=== PATIENT | female | born 1960 | race Caucasian/White ===

== ENCOUNTER 2018-07-02 06:24 | Day surgery (SDC) | payer OTHER, SELFPAY ==
[2018-06-10 13:16] VITALS: BMI 29.2
[2018-07-02] VITALS (7 sets, daily range): BP systolic 110–137; BP diastolic 68–84; PULSE 61–98; RESP 16–18; TEMP 36.1–36.3; O2SAT 94–100; BMI 30.2
--- NOTE | 2018-07-02 06:37 | EKG12_ITS ---
Test Reason : PRE OP Blood Pressure : / mmHG Vent. Rate : 090 BPM Atrial Rate : 090 BPM P-R Int : 154 ms QRS Dur : 080 ms QT Int : 352 ms P-R-T Axes : 039 022 056 degrees QTc Int : 430 ms Normal sinus rhythm Nonspecific ST abnormality Abnormal ECG No previous ECGs available Confirmed by ANY DAVIS ([id number]), editor trade journal THA AMADOR ([id number]) on 07/07/2018 2:52:25 PM Referred By: Kurtis Mcbride Confirmed By:ANY DAVIS
--- NOTE | 2018-07-02 08:30 | RAD_ITS ---
STUDY: INTRAOPERATIVE CHOLANGIOGRAM. REASON FOR EXAM: Female, 58 years old. Laparoscopic cholecystectomy. FLUOROSCOPY TIME (if supplied): (15 seconds.) minutes/seconds TECHNIQUE: And intraoperative cholangiogram was performed by the surgeon. Imaging was submitted. COMPARISON: None. FINDINGS: The common bile duct is not dilated. There is free flow of contrast into the duodenum. No intraluminal filling defect is seen. RAD/Cholangiogram/ O R,Initial IMPRESSION: Unremarkable intraoperative cholangiogram. Electronically Signed: Beck Augustin MD at 10:48 EST Tel [phone], Service support ,
--- NOTE | 2018-07-02 08:30 | GALL_PTH ---
PATIENT: ADIS BECERRA LOC: [facility] [place] U#:[id number] AGE/SX: 58/F ROOM: RE07/02/[address]: Dr. Kurtis Mcbride MD : [id number] BED: DIS: 07/02/2018 SPEC #: [id number] RECD: 07/02/18 10:26 STATUS: RUI REDaryl #: [id number] EFFIE: 07/02/18 08:[address]: Kurtis Mcbride DEPT: SURGICAL PATHOLOGY RECD BY: Joselin Moran ENTERED: 07/05/18 08:29 SP TYPE: GRANT HERNÁNDEZ DR: Tali Jones, DANIEL Tissues: Gallbladder, NOS Procedures: Surgery Specimen Level III HEADER OPERATION: Laparoscopic cholecystectomy with IOC PRE-OP DIAGNOSIS: Biliary colic TISSUE SUBMITTED: Gallbladder and contents MICROSCOPIC DIAGNOSIS Gallbladder and contents: Chronic cholecystitis, cholelithiasis and focal cholesterolosis. SJ:jim 07/05/18 MICROSCOPIC DESCRIPTION Slides are reviewed. GROSS DESCRIPTION Received is one container labeled with the patient's name and designated gallbladder. The specimen consists of a gallbladder measuring 12 cm in length and up to 3 cm in diameter. The external surface is pink-kohler, smooth and glistening for the most part. Focally it is granular, hemorrhagic and contains cautery artifact. The gallbladder contains green-yellow mucoid bile and multiple brown stones measuring in aggregate 4 x 3.5 x 2 cm and 0.3 to 1.5 cm in greatest dimension. The mucosa is bile-stained and without any mass lesions. The gallbladder wall measures up to 0.2 cm in thickness. Rn Radiology sections from the gallbladder and the cystic duct are submitted in one cassette. / SJ:jim 07/02/18 TC:4 CPT: 61192
[2018-07-02] MEDS: Bupiv/Epi 0.5% Mpf 30 ML Vial (09:35)
--- NOTE | 2018-07-02 09:45 | PCM.OPRPT ---
Problem List (1) Cholelithiasis Status: Acute Qualifiers: Cholelithiasis location: gallbladder Cholecystitis presence: without cholecystitis Biliary obstruction: without biliary obstruction Qualified Code(s): K80.20 - Calculus of gallbladder without cholecystitis without obstruction Report of Operation Date of Procedure: 07/02/18 Pre-Operative Diagnosis: Biliary colic with cholelithiasis and history of cholecystitis Post-Operative Diagnosis: Same Surgery/Procedure Performed:: Laparoscopic cholecystectomy with cholangiogram Specimen's removed: Gallbladder and contents Description of Procedure: After obtaining informed consent patient was brought back to the operating room. General anesthesia was induced. The abdomen was prepped and draped in usual sterile fashion. A small midline incision was made superior to the umbilicus and deepened to the level of fascia. The fascia was elevated and incised. Next the peritoneum was elevated and incised in the same fashion. Finger sweep was performed and the Lopez trocar was placed into the abdomen. The balloon was inflated. The abdomen was inflated to 15 mmHg. Next a camera was introduced into the abdomen and the abdomen was inspected. Next under direct visualization three 5-mm ports were placed one subxiphoid and 2 subcostal. Next the gallbladder was elevated and retracted toward the right shoulder. The peritoneum was stripped from the gallbladder. The infundibulum was located and retracted laterally. Next the triangle of Calot was dissected and the cystic duct and cystic artery were identified. Cholangiograms were performed. The Barnes catheter was used to clamp across the infundibulum and the needle was inserted into the gallbladder. Under fluoroscopy contrast was instilled into the gallbladder and the common duct, cystic duct as well as proximal hepatic ducts were identified. There was good filling of the duodenum. There were no filling defects noted in the common bile duct. The clamp was removed as well as the needle and the infundibulum was grasped once more. Three hemolock clips were placed across the cystic duct. The cystic duct was then divided leaving 2 clips on the stump. The cystic artery was clipped and divided in the same fashion. The hook cautery was then used to take the gallbladder off of the gallbladder bed. Hemostasis was obtained. Gallbladder fossa was irrigated and no active bleeding or bile leakage was noted. Next the camera switched to a 5 mm camera and introduced in the subxiphoid port. An Endopouch bag was placed through the umbilical port and the gallbladder was placed into it. The gallbladder was then removed through the umbilical incision. The camera was then reinserted through the umbilical port. The gallbladder fossa was inspected once more and noted to be hemostatic with no leaking bile. The abdomen was suctioned dry the 5 mm ports were removed under direct visualization. The umbilical port was then removed and the air was removed from the abdomen. Next using an 0 Vicryl suture the umbilical fascia was closed in a [id number] fashion. The umbilical port site was irrigated local anesthetic was administered to all the incisions. All the incisions were closed subcuticular 4-0 Monocryl sutures followed by Steri-Strips and dressings. The patient was awoken and taken to PACU in stable condition. - Admit VTE Documentation VTE Present on Admission: No VTE Mechan Device Prophylaxis: SCD's
--- NOTE | 2018-07-02 09:51 | DCINST_ITS ---
Discharge Diet: Light diet - advance as tolerated Discharge Activity: Return to Normal Activity, May Not Drive - for 2-3 days or while taking narcotic pain medicataions., - - Do not drive, work heavy equipment or sign legal documents for 24 hours. May shower in (days): 1 - with the bandage in place. Lifting Restrictions: 20 lbs for 2 weeks Additional Activity Instructions:: Pain medication may cause nausea. You should typically eat light foods as you take your pain medications. Pain medication may also cause constipation. If this is a problem for you, please discuss with your doctor. Call your doctor if your incision/area has: Continuous Slow Oozing, Sudden Increased Bleeding, Increased Pain/ Swelling, Increased Redness, Foul Smelling Discharge, Fever of 101 or Higher Call your doctor if you observe: Fever of 101 or Higher Suture Line Care: Avoid Pulling/Pushing, Avoid Pinching/Bending Additional Dressing/Incision Instructions:: Leave operative bandaids on for 2 days. When you remove dressing, leave Steri-Strips on until your follow-up appointment, or until the Steri-Strips fall off on their own. Allergies/Adverse Reactions: Allergies No Known Allergies Allergy (Verified 06/25/18 14:45) Medications to take at Discharge loratadine 10 mg tablet 10 mg PO DAILY PRN 06/10/18 Oxycodone HCl/Acetaminophen [Percocet 5/325] 1 - 2 tablet PO Q4H PRN PRN 7 Days #40 tablet 07/02/18 The following prescriptions were given: Oxycodone HCl/Acetaminophen [Percocet 5/325] 1 - 2 tablet PO Q4H PRN PRN 7 Days #40 tablet PRN Reason: Pain Primary Care Physician: Tali Jones NP-C [Primary Care Provider] - Test Results: Test results from this visit will be discussed in further detail at your follow- up appointment, if applicable. Please Follow Up With: Kurtis Mcbride MD When: Please call to schedule 2 week follow up appointment. [phone]
== END 2018-07-02 12:51 | disposition home or self-care (01) ==
LOC: SDC 06:26 → AC 06:27
PROVIDERS: Family Provider Nurse Practitioner Family; PCP Nurse Practitioner Family; Referring Provider Surgery; Visit Provider Surgery
PROC: (CPT 47610; principal; 2018-07-02 08:20)
DX: K80.10 Calculus of gallbladder with chronic cholecystitis without obstruction (principal)
CPT/HCPCS: 00790; 47563; 74300; 76000; 88304; 93005; J7120; J2405

== ENCOUNTER → 2019-03-31 08:34 | Outpatient (CLI) | payer OTHER, SELFPAY ==
[2018-07-02 07:07] VITALS: BMI 30.2
[2019-03-31 08:06] VITALS: BMI 30.2
--- NOTE | 2019-03-31 08:48 | BI_ITS ---
MAMMOGRAPHY - BILATERAL SCREENING REASON FOR EXAM: Female, 58 years old. Routine annual screening examination. PERTINENT HISTORY: Non-contributory. Remote needle biopsy. TECHNIQUE: Digital bilateral breast wen (3D mammographic acquisition) in the CC and MLO projections. 2-D mediolateral oblique (MLO) and craniocaudad (CC) views of both breasts were obtained. CAD: Full Field Digital Mammography with Computer Added Detection was performed. COMPARISON: Comparison is made with prior outside examination of November 16, 2017. FINDINGS: Breast Composition: The breasts are heterogeneously dense, which may obscure small masses. There are no dominant masses or suspicious calcifications. Stable appearance of the bilateral small axillary lymph nodes. No other significant abnormalities are identified. There has been no significant change since the prior study. BI/SCREEN MAMM (CAD) W/WEN BILAT IMPRESSION: Stable bilateral screening mammogram. Yearly follow-up mammogram recommended. (A) ASSESSMENT CATEGORY: BIRADS Category 1: Negative. A letter regarding these results will be sent to the patient by the facility within 30 days. Approximately 10% of breast cancers are not detected by mammography. A normal mammogram should not delay biopsy of a clinically suspicious abnormality. [id number] Electronically Signed: Beck Augustin, at 10:26 EDT , Service support ,
== END ==
PROVIDERS: Family Provider Nurse Practitioner Family; PCP Nurse Practitioner Family; Referring Provider Nurse Practitioner Women's Health; Visit Provider Nurse Practitioner Women's Health
DX: Z12.31 Encounter for screening mammogram for malignant neoplasm of breast (principal)
CPT/HCPCS: 77063; 77067

== ENCOUNTER → 2020-05-17 07:16 | Outpatient (CLI) | payer OTHER, SELFPAY ==
[2020-04-10 10:30] VITALS: BMI 30.2
--- NOTE | 2020-05-17 07:17 | BI_ITS ---
MAMMOGRAPHY - BILATERAL SCREENING REASON FOR EXAM: Female, 60 years old. Routine annual screening examination. PERTINENT HISTORY: Non-contributory. TECHNIQUE: Digital bilateral breast wen (3D mammographic acquisition) in the CC and MLO projections. 2-D mediolateral oblique (MLO) and craniocaudad (CC) views of both breasts were obtained. CAD: Full Field Digital Mammography with Computer Added Detection was performed. COMPARISON: Comparison is made with prior study dated 03/31/2019. FINDINGS: Breast Composition: The breasts are heterogeneously dense, which may obscure small masses. There are no dominant masses or suspicious calcifications. Stable benign appearing bilateral axillary lymph nodes. No other significant abnormalities are identified. There has been no significant change since the prior study. BI/SCREEN MAMM (CAD) W/WEN BILAT IMPRESSION: Stable bilateral screening mammogram. Yearly follow-up mammogram recommended. (A) ASSESSMENT CATEGORY: BIRADS Category 2: Benign. A letter regarding these results will be sent to the patient by the facility within 30 days. Approximately 10% of breast cancers are not detected by mammography. A normal mammogram should not delay biopsy of a clinically suspicious abnormality. [id number] Electronically Signed: Beck Augustin, at 8:29 EST , Service support ,
== END ==
PROVIDERS: PCP Nurse Practitioner Family; Referring Provider Obstetrics & Gynecology; Visit Provider Obstetrics & Gynecology
DX: Z12.31 Encounter for screening mammogram for malignant neoplasm of breast (principal)
CPT/HCPCS: 77063; 77067

== ENCOUNTER → 2021-05-20 13:33 | Outpatient (CLI) | payer OTHER, SELFPAY ==
--- NOTE | 2021-05-20 13:36 | BI_ITS ---
MAMMOGRAPHY - BILATERAL SCREENING REASON FOR EXAM: Female, 61 years old. Routine annual screening examination. PERTINENT HISTORY: Non-contributory. TECHNIQUE: Digital bilateral breast wen (3D mammographic acquisition) in the CC and MLO projections. 2-D mediolateral oblique (MLO) and craniocaudad (CC) views of both breasts were obtained. CAD: Full Field Digital Mammography with Computer Added Detection was performed. COMPARISON: Comparison is made with prior study dated 05/17/2020 and 03/31/2019. FINDINGS: Breast Composition: The breasts are heterogeneously dense, which may obscure small masses. There are no dominant masses or suspicious calcifications. Stable small benign-appearing bilateral axillary lymph nodes. No other significant abnormalities are identified. There has been no significant change since the prior study. BI/SCRN MAMM (CAD)W/WEN BILAT IMPRESSION: Stable bilateral screening mammogram. Yearly follow-up mammogram recommended. (A) ASSESSMENT CATEGORY: BIRADS Category 2: Benign. A letter regarding these results will be sent to the patient by the facility within 30 days. Approximately 10% of breast cancers are not detected by mammography. A normal mammogram should not delay biopsy of a clinically suspicious abnormality. [id number] Electronically Signed: Beck Augustin MD at 14:29 EST , Service support ,
== END ==
PROVIDERS: PCP Family Medicine; Referring Provider Nurse Practitioner Women's Health; Visit Provider Nurse Practitioner Women's Health
DX: Z12.31 Encounter for screening mammogram for malignant neoplasm of breast (principal)
CPT/HCPCS: 77063; 77067

== ENCOUNTER → 2022-01-08 | Outpatient (CLI) | payer OTHER, SELFPAY ==
[2022-01-08 17:47] LABS: Absolute Lymphocyte Count 1.17 X10^3/uL (0.83-4.51); Absolute Neutrophil Count 2.9 X10^3/uL (2.0-7.7); Basophil# 0.04 X10^3/uL; Basophil% 0.9 % (0-1); Eosinophil# 0.06 X10^3/uL; Eosinophils% 1.3 % (0-5); Hematocrit 37.7 % (37-47); Lymphocyte # 1.17 X10^3/ul (0.83-4.51); Lymphocyte % 25.3 % (19-41); Mean Corp Hgb Conc 31.8 g/dL (32-36); Mean Corpuscular Volume 94.3 fL (81-99); Mean Platelet Vol. 11.3 fl (6.2-12.0); Monocyte# 0.42 X10^3/uL; Monocyte% 9.1 % (0-10); NRBC Flagged by Analyzer 0 % (0-5); Neutrophil # 2.93 X10^3/uL (2.7-7.7); Neutrophil % 63.2 % (47-70); Platelet Count 183 K/mm3 (150-450); RBC Distribution Width CV 13.8 % (11.6-14.6); RBC Distribution Width SD 48.1 fl (35.1-43.9); White Blood Count 4.6 K/mm3 (4.4-11.0)
[2022-01-08 18:15] LABS: Hemoglobin A1c 5.7 % (3.8-5.6)
[2022-01-08 18:50] LABS: ALB/GLOB Ratio 1.1 RATIO (0.9-2.4); AST(SGOT) 15 U/L (15-37); Alanine Aminotransfer ALT/SGPT 14 U/L (13-56); Albumin, Serum 3.6 g/dL (3.2-5.0); Alkaline Phosphatase 76 U/L (45-117); Anion Gap 10 (5-15); BUN 15 mg/dL (7-18); Calcium,Total 8.9 mg/dL (8.5-10.1); Chloride 104 mmol/L (98-107); Cholesterol 178 mg/dL (200); Creatinine, Serum 0.79 mg/dL (0.55-1.02); EST Glomerular Filtration Rate 79 mL/min (>60); Est Glom Filt Rate - Afr Amer 95 mL/min (>60); Globulin 3.4 g/dL (2.2-4.2); Glucose 89 mg/dL (74-106); High Density Lipoprotein 65 mg/dL; Potassium 3.5 mmol/L (3.5-5.1); Sodium Level 140 mmol/L (136-145); Thyroid Stim Hormone (TSH) 0.98 uIU/mL (0.358-3.74)
[2022-01-09 07:30] LABS: Triglycerides 81 mg/dL; Very Low Density Lipoprotein 16 mg/dL (5-40)
== END | disposition home or self-care (01) ==
LOC: MFPLAB 15:17
PROVIDERS: PCP Family Medicine; Visit Provider Family Medicine
DX: Z00.00 Encounter for general adult medical examination without abnormal findings (principal); Z13.0 Encounter for screening for diseases of the blood and blood-forming organs and certain disorders involving the immune mechanism; Z13.1 Encounter for screening for diabetes mellitus; Z13.220 Encounter for screening for lipoid disorders; Z13.228 Encounter for screening for other metabolic disorders
CPT/HCPCS: 36415; 80053; 80061; 83036; 84443; 85025

== ENCOUNTER → 2022-05-16 | Outpatient (CLI) | payer OTHER, SELFPAY ==
--- NOTE | 2022-05-16 10:23 | BI_ITS ---
MAMMOGRAPHY - BILATERAL SCREENING REASON FOR EXAM: Female, 62 years old. Routine annual screening examination. PERTINENT HISTORY: Non-contributory. TECHNIQUE: Digital bilateral breast wen (3D mammographic acquisition) in the CC and MLO projections. 2-D mediolateral oblique (MLO) and craniocaudad (CC) views of both breasts were obtained. CAD: Full Field Digital Mammography with Computer Added Detection was performed. COMPARISON: Comparison is made with prior study dated 05/20/2021 and 05/17/2020. FINDINGS: Breast Composition: The breasts are heterogeneously dense, which may obscure small masses. There are no dominant masses or suspicious calcifications. Stable small benign appearing bilateral axillary lymph nodes. No other significant abnormalities are identified. There has been no significant change since the prior study. BI/SCRN MAMM (CAD)W/WEN BILAT IMPRESSION: Stable bilateral screening mammogram. Yearly follow-up mammogram recommended. (A) ASSESSMENT CATEGORY: BIRADS Category 2: Benign. A letter regarding these results will be sent to the patient by the facility within 30 days. Approximately 10% of breast cancers are not detected by mammography. A normal mammogram should not delay biopsy of a clinically suspicious abnormality. [id number] Electronically Signed: Beck Augustin MD at 12:23 EDT ,
== END | disposition home or self-care (01) ==
PROVIDERS: PCP Family Medicine; Referring Provider Nurse Practitioner Women's Health; Visit Provider Nurse Practitioner Women's Health
DX: Z12.31 Encounter for screening mammogram for malignant neoplasm of breast (principal)
CPT/HCPCS: 77063; 77067

== ENCOUNTER → 2023-05-25 | Outpatient (CLI) | payer OTHER, SELFPAY ==
--- NOTE | 2023-05-25 15:36 | BI_ITS ---
MAMMOGRAPHY - BILATERAL SCREENING REASON FOR EXAM: Female, 63 years old. Routine annual screening examination. PERTINENT HISTORY: Non-contributory. History of prior breast aspiration. TECHNIQUE: Digital bilateral breast wen (3D mammographic acquisition) in the CC and MLO projections. 2-D mediolateral oblique (MLO) and craniocaudad (CC) views of both breasts were obtained. CAD: Full Field Digital Mammography with Computer Added Detection was performed. COMPARISON: Comparison is made with prior study dated May 16, 2022 and May 20, 2021. FINDINGS: Breast Composition: The breasts are heterogeneously dense, which may obscure small masses. There are no dominant masses or suspicious calcifications. Stable small benign-appearing bilateral axillary lymph nodes. No other significant abnormalities are identified. There has been no significant change since the prior study. BI/SCRN MAMM (CAD)W/WEN BILAT IMPRESSION: Stable bilateral screening mammogram. Yearly follow-up mammogram recommended. (A) ASSESSMENT CATEGORY: BIRADS Category 2: Benign. A letter regarding these results will be sent to the patient by the facility within 30 days. Approximately 10% of breast cancers are not detected by mammography. A normal mammogram should not delay biopsy of a clinically suspicious abnormality. [id number] Electronically Signed: Beck Augustin MD at 9:39 EST ,
== END | disposition home or self-care (01) ==
LOC: OPBI 15:35
PROVIDERS: PCP Family Medicine; Referring Provider Obstetrics & Gynecology; Visit Provider Obstetrics & Gynecology
DX: Z12.31 Encounter for screening mammogram for malignant neoplasm of breast (principal)
CPT/HCPCS: 77063; 77067

== ENCOUNTER → 2024-03-01 | Outpatient (CLI) | payer OTHER, SELFPAY ==
[2024-03-01 12:48] LABS: Absolute Lymphocyte Count 0.86 X10^3/uL (0.83-4.51); Absolute Neutrophil Count 2.6 X10^3/uL (2.0-7.7); Basophil# 0.04 X10^3/uL; Eosinophil# 0.13 X10^3/uL; Eosinophils% 3.3 % (0-5); Hemoglobin 12.2 g/dL (12.0-15.0); Lymphocyte # 0.86 X10^3/ul (0.83-4.51); Lymphocyte % 21.6 % (19-41); Mean Corpuscular Hgb 30.4 pg (27.0-32.0); Mean Corpuscular Volume 92.3 fL (81-99); Mean Platelet Vol. 11.2 fl (6.2-12.0); Monocyte# 0.33 X10^3/uL; Monocyte% 8.3 % (0-10); NRBC Flagged by Analyzer 0 % (0-5); Neutrophil # 2.61 X10^3/uL (2.7-7.7); Neutrophil % 65.5 % (47-70); Platelet Count 174 K/mm3 (150-450); RBC Distribution Width CV 13.2 % (11.6-14.6); RBC Distribution Width SD 44.5 fl (35.1-43.9); Red Blood Count 4.01 M/mm3 (4.2-5.4)
[2024-03-01 13:03] LABS: Vitamin B12 308 pg/mL (211-911); Vitamin D,25 Hydroxy 31.4 ng/mL
[2024-03-01 13:56] LABS: ALB/GLOB Ratio 1.1 RATIO (0.9-2.4); AST(SGOT) 15 U/L (15-37); Alanine Aminotransfer ALT/SGPT 12 U/L (13-56); Albumin, Serum 3.5 g/dL (3.2-5.0); Alkaline Phosphatase 76 U/L (45-117); Anion Gap 6 (5-15); BUN 7 mg/dL (7-18); BUN/Creat Ratio 9.7 RATIO (10-20); Calcium,Total 9.4 mg/dL (8.5-10.1); Chloride 109 mmol/L (98-107); Cholesterol 176 mg/dL (200); Creatinine, Serum 0.72 mg/dL (0.55-1.02); EST Glomerular Filtration Rate 87 mL/min (>60); Est Glom Filt Rate - Afr Amer 105 mL/min (>60); Globulin 3.3 g/dL (2.2-4.2); Glucose 87 mg/dL (74-106); High Density Lipoprotein 62 mg/dL; Potassium 3.9 mmol/L (3.5-5.1); Protein, Total 6.8 g/dL (6.4-8.2); Sodium Level 140 mmol/L (136-145); Thyroid Stim Hormone (TSH) 0.711 uIU/mL (0.358-3.740); Triglycerides 90 mg/dL; Very Low Density Lipoprotein 18 mg/dL (5-40)
[2024-03-01 14:01] LABS: Hemoglobin A1c 5.3 % (3.8-5.6)
== END | disposition home or self-care (01) ==
LOC: VSLAB 08:41
PROVIDERS: PCP Nurse Practitioner Family; Visit Provider Nurse Practitioner Family
DX: R73.03 Prediabetes (principal); E66.9 Obesity, unspecified
CPT/HCPCS: 36415; 80053; 80061; 82306; 82607; 83036; 84443; 85025

== ENCOUNTER → 2024-07-05 | Outpatient (CLI) | payer OTHER, SELFPAY ==
--- NOTE | 2024-07-05 12:20 | BI_ITS ---
MAMMOGRAPHY - BILATERAL SCREENING 3-D TOMOSYNTHESIS REASON FOR EXAM: Female, 64 years old. screening mammogram PERTINENT HISTORY: No significant family history. TECHNIQUE: 2-D mammograms and 3-D Tomosynthesis of the breast (s) were performed. CAD was performed. COMPARISON: 05/25/2023 FINDINGS: The breast composition is heterogeneously dense that can obscure small breast masses. Scattered benign calcifications are seen. No dense spiculated masses or suspicious microcalcifications are identified. No architectural distortion is identified. There is no skin thickening or retraction. There has been no significant change since the prior study. BI/SCRN MAMM (CAD)W/WEN BILAT IMPRESSION: No mammographic signs of malignancy. Routine yearly mammograms recommended. ASSESSMENT CATEGORY: BIRADS Category 1: Negative. A letter regarding these results will be sent to the patient by the facility within 30 days. FOLLOW UP RECOMMENDATION: Yearly follow up mammogram recommended. (A) Approximately 10% of breast cancers are not detected by mammography. A normal mammogram should not delay biopsy of a clinically suspicious abnormality. Electronically Signed: Odilon Saunders MD at 15:47 EST ,
== END | disposition home or self-care (01) ==
LOC: OPBI 12:20
PROVIDERS: PCP Nurse Practitioner Family; Referring Provider Nurse Practitioner Family; Visit Provider Nurse Practitioner Family
DX: Z12.31 Encounter for screening mammogram for malignant neoplasm of breast (principal)
CPT/HCPCS: 77063; 77067

== ENCOUNTER → 2025-07-11 | Outpatient (CLI) | payer OTHER, SELFPAY ==
--- NOTE | 2025-07-11 07:15 | BI_ITS ---
EXAM: SCRN MAMM (CAD)W/WEN BILAT DATE: 07/11/2025 CLINICAL HISTORY: F, Age 65 y/o , SCREEN FOR BREAST CANCER Routine screening TECHNIQUE: Procedure Code: [id number] Modality: MG Procedure: SCRN MAMM (CAD)W/WEN BILAT COMPARISON: Prior exam(s) dated 07/05/2024 FINDINGS: TISSUE DENSITY: There are scattered areas of fibroglandular density. Bilateral Breast Mammographic Findings: No significant masses, calcifications or other abnormalities are identified. Stable scattered punctate and vascular calcifications. No interval change BI/SCRN MAMM (CAD)W/WEN BILAT IMPRESSION: Stable screening mammogram, no suspicious findings OVERALL FINAL ASSESSMENT BI-RADS 2: BENIGN RECOMMENDATION: Routine annual follow-up in 1 Year Additional Recommendation none A letter with findings and recommendations will be mailed to the patient. Reading Location: [id number]
--- OUTSIDE RECORDS SUMMARY | 2025-07-11 07:22 | XMS RPT_ITS | CCD ---
Author Organization [facility] Care Team Providers Care Aviation Project Manager Name Role Phone Abdelrahman Hopkins Primary Care Provider UnavailAbdelrahman Britt Referring Provider Unavailable MIKHAIL Rapp Attending Provider Abdelrahman Hopkins Primary Care Provider UnavailAbdelrahman Britt Referring Provider Unavailable Dr. Alessia Chen Attending Provider [phone] DO Krista Alba Primary Care Provider DO Krista Alba Referring Provider [phone] Dr. Alessia Chen Attending Provider Sobia Rahman Attending Unavailable Sobia Rahman Referring Unavailable Cesar, July Primary Care Unavailable Cesar July Primary Care Unavailable July Guerrero Attending Unavailable Cesar July Primary Care Unavailable Cesar July Attending Unavailable Cesar, July Referring Unavailable Sobia Rahman Attending Unavailable Cesar July Primary Care Unavailable Medications Current Medications Medication Drug Class(es) Dates Sig (Normalized) Sig (Original) citalopram 20 mg oral tablet (9 sources) Serotonin Reuptake Inhibitor Start: 05-20-2021 End: 05-25-2023 take 1 tablet by mouth once daily Citalopram (Celexa) 20 mg tablet Active 20 MG PO DAILY May 25, 2023 3:15pm fexofenadine hydrochloride 180 mg oral tablet (1 source) Histamine-1 Receptor Antagonist Start: 05-25-2023 take 1 tablet by mouth once daily Fexofenadine (Jody Allergy) 180 mg tablet Active 180 MG PO DAILY May 25, 2023 12:00am Completed/Discontinued Medications Medication Drug Class(es) Dates Sig (Normalized) Sig (Original) acetaminophen 325 mg / oxyCODONE hydrochloride 5 mg oral tablet (3 sources) Opioid Agonist Start: 07-02-2018 End: 07-09-2018 take 1 tablet by mouth every four hours as needed Oxycodone-Acetamin ophen Discontinued 1 - 2 TABLET PO EVERY 4 HOURS NEEDED 40 7 July 02, 2018 12:00am July 09, 2018 12:08am loratadine 10 mg oral tablet (3 sources) Start: 06-10-2018 End: 05-25-2023 take 1 tablet by mouth once daily Loratadine (Claritin) 10 mg tablet Discontinued 10 MG PO DAILY June 10, 2018 12:00am May 25, 2023 3:07pm valACYclovir 1000 mg oral tablet (3 sources) Herpesvirus Nucleoside Analog DNA Polymerase Inhibitor, Herpes Simplex Virus Nucleoside Analog DNA Polymerase Inhibitor, Herpes Zoster Virus Nucleoside Analog DNA Polymerase Inhibitor Start: 12-11-2021 End: 05-16-2022 Valacyclovir (Valtrex) 1 gram tablet Discontinued 1000 MG PO THREE TIMES A DAY December 10, 2021 11:00pm May 16, 2022 8:37am Problems Active Problems Problem Classification Problem Date Documented Date Episodic/Chronic Anxiety disorders (3 sources) Anxiety; Translations: [Generalized anxiety disorder] 05-20-2021 Chronic Other nutritional; endocrine; and metabolic disorders (1 source) Obesity, unspecified; Translations: [Obesity, unspecified] Onset: 03-01-2024 Chronic Other screening for suspected conditions (not mental disorders or infectious disease) (1 source) Encounter for screening mammogram for malignant neoplasm of breast; Translations: [Encounter for screening mammogram for malignant neoplasm of breast] Onset: 07-28-2024 Episodic Residual codes; unclassified (3 sources) History of colonoscopy; Translations: [Other specified postprocedural states] 07-02-2018 Episodic Viral infection (4 sources) Herpes zoster; Translations: [Zoster without complications] Episodic Past or Other Problems Problem Classification Problem Date Documented Da te Episodic/Chronic Diabetes mellitus without complication (2 sources) Prediabetes; Translations: [Prediabetes] Onset: 03-01-2024 Episodic Results Test Name Value Interpretation Reference Range Facility SCRN MAMM (CAD)W/WEN sams 07-05-2024 SCRN MAMM (CAD)W/WEN [facility] Imaging Services [address] [place] [address] [id number] SCRN MAMM (CAD)W/WEN BILAT MR#: [id number] Acct: [id number] Name: ADIS BECERRA Rep #: [id number] : 1960 F 64 From: Odilon Saunders MD PCP: BRETT Woods, DANIEL Status: REG CLI Study: SCRN MAMM (CAD)W/WEN BILAT Date of Exam: 06/13 11/03 Exam# [id number] Ordering Dr: Sobia Rahman [id number] MAMMOGRAPHY - BILATERAL SCREENING 3-D TOMOSYNTHESIS REASON FOR EXAM: Female, 64 years old. screening mammogram PERTINENT HISTORY: No significant family history. TECHNIQUE: 2-D mammograms and 3-D Tomosynthesis of the breast (s) were performed. CAD was performed. COMPARISON: 05/25/2023 FINDINGS: The breast composition is heterogeneously dense that can obscure small breast masses. Scattered benign calcifications are seen. No dense spiculated masses or suspicious microcalcifications are identified. No architectural distortion is identified. There is no skin thickening or retraction. There has been no significant change since the prior study. BI/SCRN MAMM (CAD)W/WEN BILAT IMPRESSION: No mammographic signs of malignancy. Routine yearly mammograms recommended. ASSESSMENT CATEGORY: BIRADS Category 1: Negative. A letter regarding these results will be sent to the patient by the facility within 30 days. FOLLOW UP RECOMMENDATION: Yearly follow up mammogram recommended. (A) Approximately 10% of breast cancers are not detected by mammography. A normal mammogram should not delay biopsy of a clinically suspicious abnormality. Electronically Signed: Odilon Saunders MD at 15:47 EST , CC: DANIEL Rahman; [facility] DANIEL Guerrero Supervisor Finishing Room: Signed Normal [facility] Portainer Operator Office Visit Reporton 06-30-2024 Portainer Operator Office Visit Report [facility] [address] [place] [address], [address] [place] [address] OFFICE VISIT Date of Service: 06/30/24 MR#: [id number] Acct: [id number] Name: ADIS BECERRA Rep #: [id number] : 1960 Provider: DANIEL Cerda Age/Sex: 64/F Location: [facility] Status: Signed Intake Vital Signs 05/25/23 15:07 06/30/24 08:28 Height 5 ft 5 ft Weight: 151 lb 8 oz BMI 29.5 BP 134/86 H 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) Access Services Librarian Required: No Is patient in pain?: No Allergies No Known Allergies Allergy (Verified 06/30/24 08:29) Medications ???Medication ???Instructions ???Recorded ???Confirmed ???Type fexofenadine 180 mg tablet 180 mg PO DAILY 05/25/23 06/30/24 History (Jody Allergy) citalopram 20 mg tablet (Celexa) 20 mg PO DAILY #90 tabs 06/30/24 06/30/24 Rx semaglutide 1 mg/dose (4 mg/3 mL) 1 mg subcut QWEEK 06/30/24 06/30/24 History subcutaneous pen injector Is last menstrual period known: No Post menopausal: Yes Patient : No : No PFSH Medical History Shingles Abdominal pain Hemorrhoids Surgical History History of laparoscopic cholecystectomy Hx of colonoscopy Hx of hysterectomy Family History Father Cancer Skin cancer Social History current occupational status: employed 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 Date Name GA/Weeks Outcome Route Bth [facility] [place] 1983 Unknown Tad 1987 HPI Encounter for routine gynecological examination Details: ADIS BECERRA is a 64 year old who presents for annual exam. She reports she had a yeast infection approx 2 weeks ago. She treated herself with monistat. She reports improved symptoms with this. Last PAP: Hysterectomy; heavy bleeding History of abnormal PAP: None Last mammogram: 2022 - normal results History of abnormal mammogram: None Colon cancer screening: colonoscopy about 9 years ago - normal results Other preventative health care screenings: PCP is July Guerrero - PCP orders routine labs. Female Reproductive History Questions: metorrhagia: No, sexually active: Yes (hyst), dyspareunia: No and PCB: No Menopausal Symptoms: No hot flashes, No night sweats, No difficulty concentrating and No change in libido ROS Const Constitutional: Reports as per HPI; Denies fatigue, increased appetite, poor appetite, night sweats, weight gain or weight loss Cardio Card: Denies chest pain or palpitations Resp Resp: Denies cough or dyspnea GI GI: Reports as per HPI; Denies abdominal pain, bloating, constipation, nausea or vomiting : Reports as per HPI and other; Denies difficulty voiding, dysuria, hematuria, hot flashes, nipple discharge, pelvic pain, prolapse symptoms, urinary frequency, urinary incontinence, urinary urgency, vaginal discharge, vaginal dryness, vaginal odor or vaginal pruritus Skin Skin/Breast: Denies changing lesions, breast mass, breast pain, breast skin changes or nipple discharge Psych Psych: Reports anxiety (controlled on medication); Denies change in libido, depression or difficulty concentrating Exam Const General: cooperative, healthy appearing, no acute distress and well groomed Nutritional Appearance: well nourished Orientation: oriented x3 HENMT Head: normal to inspection and normocephalic Neck Thyroid: thyroid normal Resp Effort Inspection: normal respiratory effort and able to speak in complete sentences GI Inspection: normal to inspection Palpation: soft and no hepatosplenomegaly External Female Exam: normal external appearance and normal appearance of the urethra Urethra: normal appearance of the urethra Speculum Exam - Vagina: normal appearance of the vagina, normal vaginal discharge, no lesions and nontender Speculum Exam - Cervix: absent Bimanual Exam- Vagina Uterus: normal bimanual exam and uterus absent Bimanual Exam- Adnexa, other: no masses Skin General: no rashes or lesions noted Neuro General: patient alert, patient awake, patient oriented x3 and moves all extremities Psych Appearance: well kempt Affect: normal affec (more content not included)... Normal [facility] CBC W/Diff, Automatedon 08- 0-2023 Absolute Lymph 0.86 X10 3/uL Normal 0.83-4.51 [facility] Comment on above: Performed By: #### L 500.4050, L501.9985, L100.0100, L506.1000, L500.4100, L503.0105, L501.9520 #### [facility] [address] [place], [address] Absolute Neut 2.6 X10 3/uL Normal 2.0-7.7 [facility] Comment on above: Performed By: #### L 500.4050, L501.9985, L100.0100, L506.1000, L500.4100, L503.0105, L501.9520 #### [facility] [address] [place], [address] Basophils/100 WBC (Bld) 1.0 % Normal 0-1 [facility] Comment on above: Performed By: #### L 500.4050, L501.9985, L100.0100, L506.1000, L500.4100, L503.0105, L501.9520 #### [facility] [address] [place], [address] Eosinophils/100 WBC (Bld) 3.3 % Normal 0-5 [facility] Comment on above: Performed By: #### L 500.4050, L501.9985, L100.0100, L506.1000, L500.4100, L503.0105, L501.9520 #### [facility] [address] [place], [address] Erythrocyte distribution width (RBC) [Ratio] 13.2 % Normal 11.6-14.6 [facility] Comment on above: Performed By: #### L 500.4050, L501.9985, L100.0100, L506.1000, L500.4100, L503.0105, L501.9520 #### [facility] [address] [place], [address] Hematocrit (Bld) [Volume fraction] 37.0 % Normal 37-47 [facility] Comment on above: Performed By: #### L 500.4050, L501.9985, L100.0100, L506.1000, L500.4100, L503.0105, L501.9520 #### [facility] [address] [place], [address] Hemoglobin (Bld) [Mass/Vol] 12.2 g/dL Normal 12.0-15.0 [facility] Comment on above: Performed By: #### L 500.4050, L501.9985, L100.0100, L506.1000, L500.4100, L503.0105, L501.9520 #### [facility] [address] [place], [address] IG% 0.300 Normal 0.0-0.9 [facility] Comment on above: Result Comment: IG% - Immature Granulocytes (promyelocytes, myelocytes and metamyelocytes) > 1% indicates that a LEFT SHIFT is Present. Performed By: #### L 500.4050, L501.9985, L100.0100, L506.1000, L500.4100, L503.0105, L501.9520 #### [facility] [address] [place], [address] Lymphocytes/100 WBC (Bld) 21.6 % Normal 19-41 [facility] Comment on above: Performed By: #### L 500.4050, L501.9985, L100.0100, L506.1000, L500.4100, L503.0105, L501.9520 #### [facility] [address] [place], [address] MCH (RBC) [Entitic mass] 30.4 pg Normal 27.0-32.0 [facility] Comment on above: Performed By: #### L 500.4050, L501.9985, L100.0100, L506.1000, L500.4100, L503.0105, L501.9520 #### [facility] [address] [place], [address] MCHC (RBC) [Mass/Vol] 33.0 g/dL Normal 32-36 [facility] Comment on above: Performed By: #### L 500.4050, L501.9985, L100.0100, L506.1000, L500.4100, L503.0105, L501.9520 #### [facility] [address] [place], [address] MCV (RBC) [Entitic vol] 92.3 fL Normal 81-99 [facility] Comment on above: Performed By: #### L 500.4050, L501.9985, L100.0100, L506.1000, L500.4100, L503.0105, L501.9520 #### [facility] [address] [place], [address] Monocytes/100 WBC (Bld) 8.3 % Normal 0-10 [facility] Comment on above: Performed By: #### L 500.4050, L501.9985, L100.0100, L506.1000, L500.4100, L503.0105, L501.9520 #### [facility] [address] [place], [address] Neutrophils/100 WBC (Bld) 65.5 % Normal 47-70 [facility] Comment on above: Performed By: #### L 500.4050, L501.9985, L100.0100, L506.1000, L500.4100, L503.0105, L501.9520 #### [facility] [address] [place], [address] Nucleated RBC (Bld) [#/Vol] 0 10*3/uL Normal 0-5 [facility] Comment on above: Performed By: #### L 500.4050, L501.9985, L100.0100, L506.1000, L500.4100, L503.0105, L501.9520 #### [facility] [address] [place], [address] Platelet mean volume (Bld) [Entitic vol] 11.2 fL Normal 6.2-12.0 [facility] Comment on above: Performed By: #### L 500.4050, L501.9985, L100.0100, L506.1000, L500.4100, L503.0105, L501.9520 #### [facility] [address] [place], [address] Platelets (Bld) [#/Vol] 174 10*3/uL Normal 150-450 [facility] Comment on above: Performed By: #### L 500.4050, L501.9985, L100.0100, L506.1000, L500.4100, L503.0105, L501.9520 #### [facility] [address] [place], [address] RBC (Bld) [#/Vol] 4.01 10*6/uL Low 4.2-5.4 [facility] Comment on above: Performed By: #### L 500.4050, L501.9985, L100.0100, L506.1000, L500.4100, L503.0105, L501.9520 #### [facility] [address] [place], [address] RDW SD 44.5 fl High 35.1-43.9 [facility] Comment on above: Performed By: #### L 500.4050, L501.9985, L100.0100, L506.1000, L500.4100, L503.0105, L501.9520 #### [facility] [address] [place], [address] WBC (Bld) [#/Vol] 4.0 10*3/uL Low 4.4-11.0 [facility] Comment on above: Performed By: #### L 500.4050, L501.9985, L100.0100, L506.1000, L500.4100, L503.0105, L501.9520 #### [facility] [address] [place], [address] Comprehensive Metabolic Prof [facility] 03-01-2024 Albumin [Mass/Vol] 3.5 g/dL Normal 3.2-5.0 [facility] Comment on above: Performed By: #### L 500.4050, L501.9985, L100.0100, L506.1000, L500.4100, L503.0105, L501.9520 #### [facility] [address] [place], [address] Albumin/Globulin [Mass ratio] 1.1 {ratio} Normal 0.9-2.4 [facility] Comment on above: Performed By: #### L 500.4050, L501.9985, L100.0100, L506.1000, L500.4100, L503.0105, L501.9520 #### [facility] [address] [place], [address] ALK P 76 U/L Normal 45-117 [facility] Comment on above: Performed By: #### L 500.4050, L501.9985, L100.0100, L506.1000, L500.4100, L503.0105, L501.9520 #### [facility] [address] [place], [address] ALT [Catalytic activity/Vol] 12 U/L Low 13-56 [facility] Comment on above: Performed By: #### L 500.4050, L501.9985, L100.0100, L506.1000, L500.4100, L503.0105, L501.9520 #### [facility] [address] [place], [address] AST [Catalytic activity/Vol] 15 U/L Normal 15-37 [facility] Comment on above: Performed By: #### L 500.4050, L501.9985, L100.0100, L506.1000, L500.4100, L503.0105, L501.9520 #### [facility] [address] [place], [address] Bilirubin [Mass/Vol] 0.40 mg/dL Normal 0.20-1.00 [facility] Comment on above: Result Comment: For patients on eltrombopag therapy, use of Dimension [place] TBIL is not recommended. Performed By: #### L 500.4050, L501.9985, L100.0100, L506.1000, L500.4100, L503.0105, L501.9520 #### [facility] [address] [place], [address] BUN/CRE 9.7 RATIO Low 10-20 [facility] Comment on above: Performed By: #### L 500.4050, L501.9985, L100.0100, L506.1000, L500.4100, L503.0105, L501.9520 #### [facility] [address] [place], [address] CA,Total 9.4 mg/dL Normal 8.5-10.1 [facility] Comment on above: Performed By: #### L 500.4050, L501.9985, L100.0100, L506.1000, L500.4100, L503.0105, L501.9520 #### [facility] [address] [place], [address] Chloride [Moles/Vol] 109 mmol/L High 98-107 [facility] Comment on above: Performed By: #### L 500.4050, L501.9985, L100.0100, L506.1000, L500.4100, L503.0105, L501.9520 #### [facility] [address] [place], [address] CO2 [Moles/Vol] 25.0 mmol/L Normal 21.0-32.0 [facility] Comment on above: Performed By: #### L 500.4050, L501.9985, L100.0100, L506.1000, L500.4100, L503.0105, L501.9520 #### [facility] [address] [place], [address] Creatinine [Mass/Vol] 0.72 mg/dL Normal 0.55-1.02 [facility] Comment on above: Result Comment: The validity of the calculated GFR GFRAA in patients over 70 years has not been determined. Clinical correlation is essential. Performed By: #### L 500.4050, L501.9985, L100.0100, L506.1000, L500.4100, L503.0105, L501.9520 #### [facility] [address] [place], [address] EST GFR - AA 105 mL/min Normal >60 [facility] Comment on above: Result Comment: Afri can Ethiopian GFR Calc Performed By: #### L 500.4050, L501.9985, L100.0100, L506.1000, L500.4100, L503.0105, L501.9520 #### [facility] [address] [place], [address] GAP 6 Normal 5-15 [facility] Comment on above: Performed By: #### L 500.4050, L501.9985, L100.0100, L506.1000, L500.4100, L503.0105, L501.9520 #### [facility] [address] [place], [address] GFR/1.73 sq M.predicted among non-blacks MDRD (S/P/Bld) [Vol rate/Area] 87 mL/min/{1.73_m2} Normal >60 [facility] Comment on above: Result Comment: Non- GFR Calc Performed By: #### L 500.4050, L501.9985, L100.0100, L506.1000, L500.4100, L503.0105, L501.9520 #### [facility] [address] [place], [address] Globulin (S) [Mass/Vol] 3.3 g/dL Normal 2.2-4.2 [facility] Comment on above: Performed By: #### L 500.4050, L501.9985, L100.0100, L506.1000, L500.4100, L503.0105, L501.9520 #### [facility] [address] [place], [address] Glucose [Mass/Vol] 87 mg/dL Normal 74-106 [facility] Comment on above: Performed By: #### L 500.4050, L501.9985, L100.0100, L506.1000, L500.4100, L503.0105, L501.9520 #### [facility] [address] [place], [address] Potassium [Moles/Vol] 3.9 mmol/L Normal 3.5-5.1 [facility] Comment on above: Performed By: #### L 500.4050, L501.9985, L100.0100, L506.1000, L500.4100, L503.0105, L501.9520 #### [facility] [address] [place], [address] Sodium [Moles/Vol] 140 mmol/L Normal 136-145 [facility] Comment on above: Performed By: #### L 500.4050, L501.9985, L100.0100, L506.1000, L500.4100, L503.0105, L501.9520 #### [facility] [address] [place], [address] T PROT 6.8 g/dL Normal 6.4-8.2 [facility] Comment on above: Performed By: #### L 500.4050, L501.9985, L100.0100, L506.1000, L500.4100, L503.0105, L501.9520 #### [facility] [address] [place], [address] Urea nitrogen [Mass/Vol] 7 mg/dL Normal 7-18 [facility] Comment on above: Performed By: #### L 500.4050, L501.9985, L100.0100, L506.1000, L500.4100, L503.0105, L501.9520 #### [facility] [address] [place], [address] Hemoglobin A1con 03-01-2024 HbA1c (Bld) [Mass fraction] 5.3 % Normal 3.8-5.6 [facility] Comment on above: Result Comment: Norm al < 5.7 % Prediabetic 5.7 - 6.4 % Diabetic >or= 6.5 % Please note range changes. Performed By: #### L 500.4050, L501.9985, L100.0100, L506.1000, L500.4100, L503.0105, L501.9520 #### [facility] [address] [place], [address] Lipid Profileon 03-01-2024 Cholesterol [Mass/Vol] 176 mg/dL Normal 200 [facility] Comment on above: Result Comment: <200 mg/dL Desirable 200-240 mg/dL Borderline >240 mg/dL High Risk Performed By: #### L 500.4050, L501.9985, L100.0100, L506.1000, L500.4100, L503.0105, L501.9520 #### [facility] [address] [place], [address] Cholesterol in HDL [Mass/Vol] 62 mg/dL Normal [facility] Comment on above: Result Comment: The drugs N-Acetylcysteine and Metamizole may falsely depress this assay. Reference Range HDL <40 mg/dL Low HDL Cholesterol HDL >or= 60 mg/dL High HDL Cholesterol Performed By: #### L 500.4050, L501.9985, L100.0100, L506.1000, L500.4100, L503.0105, L501.9520 #### [facility] [address] [place], [address] Cholesterol in LDL [Mass/Vol] 96 mg/dL Normal 0-130 [facility] Comment on above: Performed By: #### L 500.4050, L501.9985, L100.0100, L506.1000, L500.4100, L503.0105, L501.9520 #### [facility] [address] [place], [address] Cholesterol in VLDL [Mass/Vol] 18 mg/dL Normal 5-40 [facility] Comment on above: Performed By: #### L 500.4050, L501.9985, L100.0100, L506.1000, L500.4100, L503.0105, L501.9520 #### [facility] [address] [place], [address] Triglyceride [Mass/Vol] 90 mg/dL Normal [facility] Comment on above: Result Comment: The drugs N-Acetylcysteine and Metamizole may falsely depress this assay. Serum Triglycerides Reference Interval Normal <150 mg/dL Borderline high 150 - 199 mg/dL High 200 - 499 mg/dL Very High > or = 500 mg/dL Performed By: #### L 500.4050, L501.9985, L100.0100, L506.1000, L500.4100, L503.0105, L501.9520 #### [facility] [address] [place], [address] Thyroid Stim Hormone (TSH)on 03-01-2024 TSH 0.711 uIU/mL Normal 0.358-3.740 [facility] Comment on above: Performed By: #### L 500.4050, L501.9985, L100.0100, L506.1000, L500.4100, L503.0105, L501.9520 #### [facility] [address] [place], [address] Vitamin B12on 03-01-2024 Cobalamin (Vitamin B12) [Mass/Vol] 308 pg/mL Normal 211-911 [facility] Comment on above: Performed By: #### L 500.4050, L501.9985, L100.0100, L506.1000, L500.4100, L503.0105, L501.9520 #### [facility] [address] [employer] [place], [address] Vitamin D,25 Hydroxyon 03-01 Vitamin D 25-OH 31.4 ng/mL Normal [facility] Comment on above: Result Comment: Nini min D 25(OH) Status Range Deficiency <20 ng/mL (50nmol/L) Insufficiency 20 - 30 ng/mL (50 - 75 nmol/L) Sufficiency 30 - 100 ng/mL (75 - 250 nmol/L) Toxicity >100 ng/mL (>250 nmol/L) Performed By: #### L 500.4050, L501.9985, L100.0100, L506.1000, L500.4100, L503.0105, L501.9520 #### [facility] [address] [place], [address] Absolute lymphocyte counton 01-08-2022 Lymphocytes Auto (Unsp spec) [#/Vol] 1.17 10*3/uL 0.83-4.51 [facility] Work Phone: Basophil percentageon 2021 Basophils/100 WBC (Bld) 0.9 % 0-1 [facility] Work Phone: Bilirubin [Mass/Vol] 0.10 mg/dL 0.20-1.00 [facility] Work Phone: Comment on above: For patients on eltr ombopag therapy, use of Dimension [place] TBIL is not recommended. Chloride [Moles/Vol] 104 mmol/L 98-107 [facility] Work Phone: Cholesterol [Mass/Vol] 178 mg/dL <200 [facility] Work Phone: Comment on above: <200 mg/dL Desirable 200-240 mg/dL Borderline >240 mg/dL High Risk Eosinophils/100 WBC (Bld) 1.3 % 0-5 [facility] Work Phone: Glucose [Mass/Vol] 89 mg/dL 74-106 [facility] Work Phone: Neutrophils (Bld) [#/Vol] 2.9 10*3/uL 2.0-7.7 [facility] Work Phone: Neutrophils/100 WBC (Bld) 63.2 % 47-70 [facility] Work Phone: Potassium [Moles/Vol] 3.5 mmol/L 3.5-5.1 [facility] Work Phone: Protein [Mass/Vol] 7.0 g/dL 6.4-8.2 [facility] Work Phone: Sodium [Moles/Vol] 140 mmol/L 136-145 [facility] Work Phone: Triglyceride [Mass/Vol] 81 mg/dL <199 [facility] Work Phone: Comment on above: The drugs N-Acetylcy steine and Metamizole may falsely depress this assay. TRIGLYCERIDE IS GREATER THAN 400 mg/dL. LDL RESULT IS INVALID AND WILL NOT BE REPORTED.Previous reported result: 424 mg/dLEdited by: AHMET on 01/09/22:0729 AMENDED REPORT 01/09/22728 TRIG previously reported as: 424 H mg/dL The drugs N-Acetylcysteine and Metamizole may falsely depress this assay. TRIGLYCERIDE IS GREATER THAN 400 mg/dL. LDL RESULT IS INVALID AND WILL NOT BE REPORTED.Serum Triglycerides Reference Interval Normal <150 mg/dL Borderline high 150 - 199 mg/dL High 200 - 499 mg/dL Very High > or = 500 mg/dL WBC (Bld) [#/Vol] 4.6 10*3/uL 4.4-11.0 [facility] Work Phone: Blood erythrocytes count (nu mber/volume)on 01-08-2022 RBC (Bld) [#/Vol] 4.00 10*6/uL 4.2-5.4 [facility] Work Phone: Blood hemoglobin measurement (mass/volume)on 01-08-2022 Hemoglobin (Bld) [Mass/Vol] 12.0 g/dL 12.0-15.0 [facility] Work Phone: Blood lymphocytes/100 leukoc yteson 01-08-2022 Lymphocytes/100 WBC (Bld) 25.3 % 19-41 [facility] Work Phone: Blood monocytes/100 leukocyt eson 01-08-2022 Monocytes/100 WBC (Bld) 9.1 % 0-10 [facility] Work Phone: Blood platelet mean volumeon 01-08-2022 Platelet mean volume (Bld) [Entitic vol] 11.3 fL 6.2-12.0 [facility] Work Phone: Determination of erythrocyte mean corpuscular volume (MCV)on 01-08-2022 MCV (RBC) [Entitic vol] 94.3 fL 81-99 [facility] Work Phone: Hematocrit Auto (Bld) [Volum e fraction]on 01-08-2022 Hematocrit (Bld) [Volume fraction] 37.7 % 37-47 [facility] Work Phone: Laboratory - Chemistry and C hemistry - challengeon 01-08-2022 ALP [Catalytic activity/Vol] 76 U/L 45-117 [facility] Work Phone: ALT [Catalytic activity/Vol] 14 U/L 13-56 [facility] Work Phone: CO2 [Moles/Vol] 26.0 mmol/L 21.0-32.0 [facility] Work Phone: Globulin (S) [Mass/Vol] 3.4 g/dL 2.2-4.2 [facility] Work Phone: Urea nitrogen/Creatinin e [Mass ratio] 19.0 mg/mg 10-20 [facility] Work Phone: Laboratory - Hematology and Cell countson 01-08-2022 Erythrocyte distribution width (RBC) [Entitic vol] 48.1 fL 35.1-43.9 [facility] Work Phone: Erythrocyte distribution width (RBC) [Ratio] 13.8 % 11.6-14.6 [facility] Work Phone: Immature granulocytes/100 WBC (Bld) 0.200 % 0.0-0.9 [facility] Work Phone: Comment on above: IG% - Immature Granu locytes (promyelocytes, myelocytes and metamyelocytes) > 1% indicates that a LEFT SHIFT is Present. MCH (RBC) [Entitic mass] 30.0 pg 27.0-32.0 [facility] Work Phone: Nucleated RBC/100 WBC (Bld) [Ratio] 0 % 0-5 [facility] Work Phone: MCHC Auto (RBC) [Mass/Vol]on 01-08-2022 MCHC (RBC) [Mass/Vol] 31.8 g/dL 32-36 [facility] Work Phone: No Panel Informationon 01-08 Estimated GFR (MDRD) Amer 95 mL/min >60 [facility] Work Phone: Comment on above: GFR Calc Estimated GFR (MDRD) Non-Af Amer 79 mL/min >60 [facility] Work Phone: Comment on above: Non- GFR Calc Thyroid Stimulating Hormone (TSH) 0.98 uIU/mL 0.358-3.74 [facility] Work Phone: Platelets bldon 01-08-2022 Platelets (Bld) [#/Vol] 183 10*3/uL 150-450 [facility] Work Phone: Serum or plasma albumin ria urement (mass/volume)on 01-08-2022 Albumin [Mass/Vol] 3.6 g/dL 3.2-5.0 [facility] Work Phone: Serum or plasma albumin/glob ulin mass ratioon 01-08-2022 Albumin/Globulin [Mass ratio] 1.1 {ratio} 0.9-2.4 [facility] Work Phone: Serum or plasma calcium ria urement (mass/volume)on 01-08-2022 Calcium [Mass/Vol] 8.9 mg/dL 8.5-10.1 [facility] Work Phone: Serum or plasma cholesterol in HDL measurement (mass/volume)on 01-08-2022 Cholesterol in HDL [Mass/Vol] 65 mg/dL >40 [facility] Work Phone: Comment on above: The drugs N-Acetylcy steine and Metamizole may falsely depress this assay. Reference Range HDL <40 mg/dL Low HDL Cholesterol HDL >or= 60 mg/dL High HDL Cholesterol Serum or plasma cholesterol in VLDL measurement (mass/volume)on 06-29-2022 Cholesterol in VLDL [Mass/Vol] 16 mg/dL 5-40 [facility] Work Phone: Comment on above: Previous reported re sult: TNP mg/dLEdited by: AHMET on 01/09/22:0730 AMENDED REPORT 01/09/22729 VLDL previously reported as: Test not performed mg/dL Serum or plasma creatinine m easurement (mass/volume)on 01-08-2022 Creatinine [Mass/Vol] 0.79 mg/dL 0.55-1.02 [facility] Work Phone: Comment on above: The validity of the calculated GFR & GFRAA in patients over 70 years has not been determined. Clinical correlation is essential. Serum or plasma low density lipoprotein (LDL) cholesterol measurement (mass/volume)on 01-08-2022 Cholesterol in LDL [Mass/Vol] 97 mg/dL 0-130 [facility] Work Phone: Comment on above: Previous reported re sult: TNP mg/dLEdited by: AHMET on 01/09/22:0730 AMENDED REPORT 01/09/22729 LDL previously reported as: Test not performed mg/dL Serum or plasma urea nitroge n measurement (mass/volume)on 01-08-2022 Urea nitrogen [Mass/Vol] 15 mg/dL 7-18 [facility] Work Phone: Thin prep Papanicolaou smear with manual screeningon 01-08-2022 Thin prep Papanicolaou smear with manual screening 15 U/L 15-37 [facility] Work Phone: Thin prep Papanicolaou smear with manual screening 10 5-15 [facility] Work Phone: Whole blood hemoglobin A1c/t otal hemoglobin ratio (mass fraction)on 01-08-2022 HbA1c (Bld) [Mass fraction] 5.7 % 3.8-5.6 [facility] Work Phone: Comment on above: Normal < 5.7 % Predi abetic 5.7 - 6.4 % Diabetic >or= 6.5 % Please note range changes. Vital Signs Date Time Vital Sign Value Performing Clinician Faci lity 11-13-2023 15:07-0500 Body height 152.4 cm DO Kristatorito Teenger Work Phone: [facility] 05-25-2023 15:06-0500 Body mass index (BMI) [Ratio] 32.2 kg/m2 DO Kristatorito Teenger Work Phone: [facility] 05-25-2023 15:06-0500 Body weight 74.89 kg DO Kristatorito Teenger Work Phone: [facility] 05-25-2023 15:06-0500 Diastolic blood pressure 85 mm[Hg] DO Kristatorito Teenger Work Phone: [facility] 05-25-2023 15:06-0500 Systolic blood pressure 134 mm[Hg] DO Krista Teenger Work Phone: [facility] 05-16-2022 09:37-0400 Body height 152.4 cm [facility] Work Phone: 05-16-2022 09:37-0400 Body mass index (BMI) [Ratio] 31.6 kg/m2 [facility] Work Phone: 05-16-2022 09:37-0400 Body weight 73.48 kg [facility] Work Phone: 05-16-2022 09:37-0400 Diastolic blood pressure 92 mm[Hg] [facility] Work Phone: 05-16-2022 09:37-0400 Systolic blood pressure 134 mm[Hg] [facility] Work Phone: 12-11-2021 15:43-0400 Body height 152.4 cm [facility] Work Phone: 12-11-2021 15:43-0400 Body mass index (BMI) [Ratio] 31.4 kg/m2 [facility] Work Phone: 12-11-2021 15:43-0400 Body temperature 98.6 [degF] [facility] Work Phone: 12-11-2021 15:43-0400 Body weight 73.02 kg [facility] Work Phone: 12-11-2021 15:43-0400 Diastolic blood pressure 68 mm[Hg] [facility] Work Phone: 12-11-2021 15:43-0400 Heart rate 68 /min [facility] Work Phone: 12-11-2021 15:43-0400 Respiratory rate 14 /min [facility] Work Phone: 12-11-2021 15:43-0400 SaO2% (BldA) [Mass fraction] 98 % [facility] Work Phone: 12-11-2021 15:43-0400 Systolic blood pressure 120 mm[Hg] [facility] Work Phone: Encounters Encounter Date Encounter Type Care Provider Facility Start: 07-05-2024 End: 07-05-2024 ambulatory Sobia Rahman Facility:[facility] Start: 06-30-2024 End: 06-30-2024 ambulatory [facility] [place] Start: 03-02-2024 ambulatory [facility] ty:[facility] Start: 03-01-2024 End: 03-01-2024 ambulatory [facility] Facility:[facility] Start: 05-25-2023 End: 05-25-2023 ambulatory DO Krista Alba Work Phone: [facility] Work Phone: Start: 05-25-2023 End: 05-25-2023 Patient encounter procedure DO Krista Alba Work Phone: [facility] Work Phone: Start: 05-16-2022 End: 05-16-[address] [facility] Work Phone: Start: 05-16-2022 End: 05-16-2022 Patient encounter procedure Abdelrahman [facility] Start: 01-08-2022 End: 01-08-2022 Patient encounter procedure Abdelrahman [facility] Start: 12-11-2021 End: 12-11-2021 Patient encounter procedure Abdelrahman [facility] Procedures Date Procedure Procedure Detail Performing Clinician Start: 05-25-2023 Screening mammography D Katie Alba Work Phone: Start: 05-16-2022 Screening mammography Berry Hopkins H/O: hysterectomy Hx of hysterectomy Abdelrahman Hopkins Plan of Treatment Date Care Activity Detail Author MG Breast - bilateral Screening [facility] Payers Date Payer Category Payer Self-pay [id number] 2023 Unknown [id number] 1999 [id number] Unknown [id number] Unknown [id number] [id number] Unknown [id number] Social History Date Type Detail Facility Start: 12-11-2021 End: 05-25-2023 Tobacco smoking status NHIS Unknown if ever smoked [facility] Start: 1960 Sex Assigned At Female [facility] Medical Equipment Procedure Code Equipment Code Equipment Original Text Equipment Identifier Dates Total cholecystectomy with exploration of common bile duct CLIP,RUIZ MARTIN FDA Start: 07-02-2018 Total cholecystectomy with exploration of common bile duct CLIP,RUIZ MARTIN FDA Start: 07-02-2018 Total cholecystectomy with exploration of common bile duct CLIP,RUIZ MARTIN FDA Start: 07-02-2018 Total cholecystectomy with exploration of common bile duct CLIP,RUIZ MARTIN FDA Start: 07-02-2018 Total cholecystectomy with exploration of common bile duct CLIP,RUIZ MARTIN FDA Start: 07-02-2018 Total cholecystectomy with exploration of common bile duct CLIP,RUIZ MARTIN FDA Start: 07-02-2018 Total cholecystectomy with exploration of common bile duct CLIP,RUIZ MARTIN FDA Start: 07-02-2018 Total cholecystectomy with exploration of common bile duct CLIP,RUIZ MARTIN FDA Start: 07-02-2018 Total cholecystectomy with exploration of common bile duct CLIP,RUIZ MARTIN FDA Start: 07-02-2018 Total cholecystectomy with exploration of common bile duct CLIP,RUIZ MARTIN FDA Start: 07-02-2018 Total cholecystectomy with exploration of common bile duct CLIP,RUIZ MARTIN FDA Start: 07-02-2018 Total cholecystectomy with exploration of common bile duct CLIP,RUIZ MARTIN FDA Start: 07-02-2018 Evaluation note Note Date & Type Note Facility Evaluation note Diagnosis Onset Date Shingles acute [facility] Work Phone: Evaluation note Note Date & Type Note Facility Evaluation note Diagnosis Onset Date Encounter for routine gyneco logical examination noneactive [facility] Work Phone: Chief Complaint and Reason for Visit Chief Complaint CONCERN FOR SHINGLES Reason for Visit Shingles Chief Complaint 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 Reason for Visit Encounter for routin e gynecological examination Chief Complaint 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 Reason for Visit Encounter for routin e gynecological examination Advance Directives No Advanced Directives Records Found Advance Directive Response Recorded Date/ Time Living Will No April 10, 2020 10:30am Power of Staff Internist Office Based Only No March 10:30am Advance Directive Response Recorded Date/ Time Living Will No April 10, 2020 9:30am Power of Staff Internist Office Based Only No March 9:30am Summary Purpose Family History No Family History Records Found Additional Source Comments Goals (unrecognized section and content) Goals may be documented in a n alternate sectionGoals may be documented in an alternate sectionGoals may be documented in an alternate section Care Teams (unrecognized sec tion and content) Team Status: Active Member Role Status Dates Tali Jones INTERNET APPLICATION DEVELOPER, INTERNET APPLICATION DEVELOPER-C Family Provider Active Krista Alba , DO Primary Care Provider Active Team Status: Inactive Member Role Status Dates Krista Alba , Primary Care Provider, Referring Provider Active Dr. Alessia Chen , DO Attending Provider Activ e Team Status: Inactive Member Role Status Dates Krista Alba , Primary Care Provider Active Dr. Alessia Chen , DO Attending Provider, Refe rring Provider Active INFORMATION SOURCE (unrecogn ized section and content) DATE CREATED AUTHOR 07/31/2024 [facility] FOR RECORDS PERTAINING TO PATIENTS WHO ARE OR HAVE BEEN ENROLLED IN A CHEMICAL DEPENDENCY/SUBSTANCEABUSE PROGRAM, SOME INFORMATION MAY BE OMITTED. This clinical summary was aggregated from multiple sources. Caution should be exercised in using it in the provision of clinical care. This summary normalizes information from multiple sources, and as a consequence, information in this document may materially change the coding, format and clinical context of patient data. In addition, data may be omitted in some cases. CLINICAL DECISIONS SHOULD BE BASED ON THE PRIMARY CLINICAL RECORDS. [employer] provides no warranty or guarantee of the accuracy or completeness of information in this document.
== END | disposition home or self-care (01) ==
LOC: OPBI 07:11
PROVIDERS: PCP Nurse Practitioner Family; Referring Provider Nurse Practitioner Family; Visit Provider Nurse Practitioner Family
DX: Z12.31 Encounter for screening mammogram for malignant neoplasm of breast (principal)
CPT/HCPCS: 77063; 77067